=== PATIENT | female | born 1960 | race Native Hawaiian/Other Pacific Islander ===

== ENCOUNTER 2021-01-10 15:05 | Outpatient (CLI) | payer OTHER | END 2021-01-10 21:38 | disposition home or self-care (01) | LOC: RAD 15:05 | PROVIDERS: ATTEND Orthopaedic Surgery | DX: M25.561 Pain in right knee (principal) ==

== ENCOUNTER 2022-08-06 11:30 | Outpatient (CLI) | payer OTHER | END 2022-08-06 19:08 | disposition home or self-care (01) | LOC: RAD 11:30 | PROVIDERS: ATTEND Orthopaedic Surgery | DX: M79.671 Pain in right foot (principal); M25.561 Pain in right knee ==